=== PATIENT | male | born 1995 | race Caucasian/White ===

== ENCOUNTER 2017-01-13 18:22 | Outpatient (CLI) | payer SELFPAY | END 2017-01-13 18:23 | disposition critical access hospital (66) | LOC: EMS 18:22 | PROVIDERS: ATTEND Surgery | DX: S61.012A Laceration without foreign body of left thumb without damage to nail, initial encounter (principal); W31.2XXA Contact with powered woodworking and forming machines, initial encounter; Y92.009 Unspecified place in unspecified non-institutional (private) residence as the place of occurrence of the external cause | CPT/HCPCS: A0425; A0429 ==

== ENCOUNTER 2017-01-13 18:48 | Emergency (ER) | payer SELFPAY ==
[2017-01-13] MEDS ORDERED: CEPHALEXIN 250 MG Prepack 8 PO ONE ×2 (18:58→19:08)
[2017-01-13] MEDS ORDERED: TETANUS/DIPHTHERIA/PERTUSSIS 0.5 ML SYRINGE IM ONE ×2 (18:58→19:08)
[2017-01-13] MEDS ORDERED: CEPHALEXIN 250 MG CAPSULE PO STA (18:58)
[2017-01-13] MEDS ORDERED: BUFFERED LIDOCAINE 10 ML SYRINGE ONE (19:02)
--- NOTE | 2017-01-13 19:02 | ED Physician Documentation ---
PD HPI UPPER EXT INJURY - Stated complaint Stated Complaint: LAC TO FINGER - History obtained from History obtained from: Patient - History of Present Illness Location: Other (Right-handed gentleman with unknown tetanus status was working at home with a table saw on the wood kicked back and impacted his left thumb and he has a left thumb tip degloving injury.) Review of Systems Constitutional: reports: Reviewed and negative Throat: reports: Reviewed and negative Cardiac: reports: Reviewed and negative Respiratory: reports: Reviewed and negative PD PAST MEDICAL HISTORY - Present Medications Home Medications: Ambulatory Orders Medication Instructions Recorded Confirmed Cephalexin [Keflex] 500 mg PO QID #30 capsule 01/13/17 HYDROcod/ACETAM 5/325 [Parks 5/325] 1 - 2 ea PO Q6H PRN #15 tablet 01/13/17 - Allergies Allergies/Adverse Reactions: Allergies Allergy/AdvReac Type Severity Reaction Status Date / Time No Known Drug Allergies Allergy Verified 01/13/17 19:01 PD ED PE NORMAL - Vitals Vital signs reviewed: Yes - General General: Alert and oriented X 3, No acute distress - Extremities Extremities: Other (The tip of the left thumb, especially on the dorsal side is degloved and partially in place though on the ulnar side of the digit. The nail is included in the degloved portion and I do not see any visible bone.) - Neuro Neuro: Alert and oriented X 3, Normal speech - Psych Psych: Normal mood, Normal affect Results - Vitals Vitals: Vital Signs - 24 hr 01/13/17 18:51 Temperature 36.3 C L Heart Rate 68 Respiratory 16 Rate Blood Pressure 146/65 H O2 Saturation 100 Oxygen O2 Source Room air - Rads (name of study) L thumb Radiology: EMP read contemporaneously (open fracture of distal phalanx) Procedures - Laceration (location) L thumb tip Length in cm: 3 Wound type: Other (He has circumferential degloving injury of the tip of the left thumb including the nailbed. It was debrided and the bony bits in the distal flap were removed and the nail was removed using blunt dissection, and then the entirety of the tip was sutured back on a circumferential fashion using 5-0 nylon interrupted sutures. This was after a digital block with a mixture of buffered lidocaine and 0.5% Marcaine with excellent anesthesia. The patient tolerated this very well.) Departure - Departure Disposition: 01 Home, Self Care Clinical Impression: Open fracture of left thumb Qualifiers: Encounter type: initial encounter Phalanx: distal Fracture alignment: displaced Qualified Code(s): S62.522B - Displaced fracture of distal phalanx of left thumb, initial encounter for open fracture Degloving injury of left hand Qualifiers: Encounter type: initial encounter Qualified Code(s): S61.402A - Unspecified open wound of left hand, initial encounter Condition: Good Record reviewed to determine appropriate education?: Yes Instructions: ED Fx Finger Open, ED Laceration Hand Follow-Up: [facility] [Provider Group] Prescriptions: Cephalexin [Keflex] 500 mg PO QID #30 capsule HYDROcod/ACETAM 5/325 [Parks 5/325] 1 - 2 ea PO Q6H PRN #15 tablet PRN Reason: Pain Comments: Call the orthopedics clinic tomorrow, I recommend 3 days for wound check in 2 weeks for suture removal. Keep the current dressing on and dry until then. Your blood pressure was elevated today on check into the emergency department. This does not mean that you have hypertension, it is a common phenomenon to come to the emergency department and have elevated blood pressure. I recommend that she see your primary care physician within the week to have it rechecked when you are feeling better. Do not drink or drive while taking narcotic pain medication. Note that many narcotic pain relievers also contain Tylenol/acetaminophen. Please ensure that your total dose of acetaminophen from all sources does not exceed 3 g (3000 mg) per day. You may get constipated while on this medication. Take a stool softener such as Colace twice a day while you are on it. Also add an vudp-avb-jrnlbob laxative such as senna or MiraLAX on any day that you do not have a bowel movement. If you received a narcotic pain medication or sedative while in the emergency department, do not drive for the next 24 hours. Forms: Activity restrictions
[2017-01-13] MEDS ORDERED: CEPHALEXIN 250 MG CAPSULE PO ONE (19:08)
[2017-01-13] MEDS ORDERED: BUPIVACAINE 0.5% PF 30 ML VIAL ONE (19:26)
[2017-01-13] MEDS ORDERED: HYDROcod/ACET 5/325 Prepack 6 PO STA (19:59)
[2017-01-13] MEDS ORDERED: HYDROcod/ACET 5/325 Prepack 6 PO ONE (20:04)
--- NOTE | 2017-01-13 20:06 | XRAY Preliminary Report ---
Exam: XR Finger(s) LT IMPRESSION: 1. Patient status post comminuted fracture and traumatic amputation of the thumb distal phalanx tuft. There is an associated obliquely oriented fracture on the ulnar side of the first distal phalanx bas e. 2. No dislocation. 3. Diffuse thumb swelling with distal thumb soft tissue defect with multiple bony fragments in the de fect. [facility] SITE ID: [id number]
[2017-01-13 20:08] VITALS: BP 131/91
--- NOTE | 2017-01-13 20:46 | XRAY Report ---
EXAM: LEFT FIRST DIGIT RADIOGRAPHY EXAM DATE: 01/13/2017 07:26 PM. CLINICAL HISTORY: Thumb injury. COMPARISON: None. TECHNIQUE: 3 views. FINDINGS: Bones: Comminuted fracture of the first distal phalanx tuft with traumatic amputation. The tip of the first distal phalanx tuft is displaced 7 mm from the thumb on the lateral view. Acute obliquely orie nted intra-articular fracture at the base of the first distal phalanx. Joints: Normal. No subluxations. Soft Tissues: Large soft tissue defect in the distal first thumb. Bone fragments are present in the s oft tissue laceration. Diffuse thumb swelling noted. IMPRESSION: 1. Patient status post comminuted fracture and traumatic amputation of the thumb distal phalanx tuft. There is an associated obliquely oriented fracture on the ulnar side of the first distal phalanx bas e. 2. No dislocation. 3. Diffuse thumb swelling with distal thumb soft tissue defect with multiple bony fragments in the de fect. [facility] Referring Provider Line: [phone] SITE ID: [id number]
== END 2017-01-13 20:10 | disposition home or self-care (01) ==
LOC: ED 18:48
DX: S62.522B Displaced fracture of distal phalanx of left thumb, initial encounter for open fracture (principal); W31.2XXA Contact with powered woodworking and forming machines, initial encounter; Y92.019 Unspecified place in single-family (private) house as the place of occurrence of the external cause; I10 Essential (primary) hypertension; E78.00 Pure hypercholesterolemia, unspecified; I25.10 Atherosclerotic heart disease of native coronary artery without angina pectoris
CPT/HCPCS: 13132; 73140; 90471; 90715; 99283; A9270

== ENCOUNTER 2017-02-08 23:28 | Emergency (ER) | payer MEDICAID ==
[2017-02-08 23:33] VITALS: BP 118/71
[2017-02-08] MEDS ORDERED: LIDOCAINE 2% 10 ML MDV ONE (23:50)
--- NOTE | 2017-02-09 00:07 | ED Physician Documentation ---
PD HPI WOUND RECHECK - Stated complaint Stated Complaint: SUTURE REMOVAL - Chief complaint Chief Complaint: Laceration - Histroy obtained from History obtained from: Patient, Family - History of Present Illness Location: Left Hand Timing - onset: How many weeks ago (3) Associated symptoms: Pain. No: Fever, Redness Similar symptoms before: Work up / diagnostics, Treatment Recently seen: Emergency Dept - Additional information Additional information: Patient is a 21 year old male with no significant past medical history who is presenting to the emergency department for wound check and suture removal. Patient had a de-gloving injury about 3 weeks prior. Patient has not been able to follow up since then since he does not have insurance. Patient states that he was finally brought in tonight by a friend to get it taken care of. Patient denies nausea, vomiting fever or chills. Review of Systems Constitutional: denies: Fever, Chills Eyes: reports: Reviewed and negative Ears: reports: Reviewed and negative Nose: reports: Reviewed and negative Throat: reports: Reviewed and negative GI: denies: Nausea, Vomiting : reports: Reviewed and negative Skin: reports: Lesions, Laceration (s) Musculoskeletal: reports: Extremity pain Neurologic: denies: Generalized weakness, Focal weakness, Numbness Immunocompromised: denies: Immunocompromised PD PAST MEDICAL HISTORY - Past Medical History Past Medical History: No - Past Surgical History Past Surgical History: No - Present Medications Home Medications: Ambulatory Orders Medication Instructions Recorded Confirmed Cephalexin [Keflex] 500 mg PO QID #30 capsule 01/13/17 HYDROcod/ACETAM 5/325 [[place]rockett 5/325] 1 - 2 ea PO Q6H PRN #15 tablet 01/13/17 - Allergies Allergies/Adverse Reactions: Allergies Allergy/AdvReac Type Severity Reaction Status Date / Time No Known Drug Allergies Allergy Verified 02/08/17 23:31 - Social History Does the pt smoke?: No Smoking Status: Never smoker Does the pt drink ETOH?: No Does the pt have substance abuse?: No - Immunizations Immunizations are current?: Yes Immunizations: TDAP >10years/unknown PD ED PE NORMAL - Vitals Vital signs reviewed: Yes - General General: Alert and oriented X 3, No acute distress - HEENT HEENT: Atraumatic, PERRL - Neck Neck: Supple, no meningeal sign - Cardiac Cardiac: RRR, No murmur - Respiratory Respiratory: No respiratory distress, Clear bilaterally - Abdomen Abdomen: Soft, Non tender, Non distended - Derm Derm: Normal color, Warm and dry, No rash - Neuro Neuro: Alert and oriented X 3, No motor deficit, No sensory deficit, Normal speech - Psych Psych: Normal mood PD ED PE EXPANDED - Extremities Extremities: Left finger(s) (1st digit. Flap of what appears to be scabbed, skin. no erythem, no discharge with approximately [address] ) Results - Vitals Vitals: Vital Signs - 24 hr 02/08/17 23:31 Temperature 35.9 C L Heart Rate 80 Respiratory 16 Rate Blood Pressure 118/71 O2 Saturation 98 Oxygen O2 Source Room air Procedures - Suture/staple Removal (location) left thumb Suture/staple removal: # sutures (15), No complications. No: Infected, Dehiscence PD MEDICAL DECISION MAKING - ED course Complexity details: reviewed old records, re-evaluated patient, d/w patient, d/ w family ED course: Patient was seen and examined at bedside. sutures were removed, but it had been so long, a few remnants where buried in granulation tissue. Patient had no signs of infection. Patient's wound was cleaned and dressed and was stable for discharge with outpatient follow up. Departure - Departure Disposition: 01 Home, Self Care Clinical Impression: Degloving injury of left hand Condition: Good Instructions: Wound Care Follow-Up: Jeffery Mcdowell MD [Provider Admit Priv/Credential] - Within 3 Days Comments: Please keep, your wound clean and dry. you should clean it with regular soap and water. You should follow up with Dr. Mcdowell, orthopedics for further evaluation. You can take motrin or tylenol as needed for pain. You should return for fevers, vomiting, new worsening or uncontrollable symptoms.
== END 2017-02-09 00:20 | disposition home or self-care (01) ==
LOC: ED 23:28
DX: S61.012D Laceration without foreign body of left thumb without damage to nail, subsequent encounter (principal); X58.XXXD Exposure to other specified factors, subsequent encounter
CPT/HCPCS: 99281; 99283

== ENCOUNTER 2022-10-11 14:51 | Emergency (ER) | payer MEDICAID ==
[2022-10-11 14:58] VITALS: BP 159/90
[2022-10-11 15:12] LABS: BASOPHILS % (AUTO) 0.5 %; EOSINOPHILS # (AUTO) 0.3 10^3/uL (0.0-0.7); EOSINOPHILS % (AUTO) 3.4 %; HCT - HEMATOCRIT 43.6 % (42.0-52.0); HGB - HEMOGLOBIN 14.6 g/dL (14.0-18.0); LYMPHOCYTES # (AUTO) 2.8 10^3/uL (1.5-3.5); MEAN CORPUSCULAR HEMOGLOBIN 28.8 pg (27.0-31.0); MEAN CORPUSCULAR HGB CONC 33.5 g/dL (32.0-36.0); MEAN PLATELET VOLUME 9.5 fL (7.4-11.4); MONOCYTES # (AUTO) 0.5 10^3/uL (0.0-1.0); MONOCYTES % (AUTO) 6.4 %; NEUTROPHILS # (AUTO) 4.5 10^3/uL (1.5-6.6); NEUTROPHILS % (AUTO) 55.5 %; PLT - PLATELET COUNT 283 10^3/uL (130-450); RED BLOOD COUNT 5.07 10^6/uL (4.70-6.10); RED CELL DISTRIBUTION WIDTH 13.3 % (12.0-15.0); WHITE BLOOD COUNT 8.1 x10^3/uL (4.8-10.8)
[2022-10-11 15:21] LABS: INR 1.1 (0.8-1.2); PT - PROTHROMBIN TIME 11.5 secs (9.9-12.6)
[2022-10-11 15:28] LABS: ALBUMIN/GLOBULIN RATIO 1.1 (1.0-2.2); BILIRUBIN,TOTAL 0.6 mg/dL (0.2-1.0); CALCIUM 9.2 mg/dL (8.5-10.3); CREATININE 0.7 mg/dL (0.6-1.2); POTASSIUM 3.9 mmol/L (3.5-5.0); TOTAL PROTEIN 7.8 g/dL (6.7-8.2)
[2022-10-11 15:38] LABS: BILIRUBIN,URINE NEGATIVE (NEGATIVE); GLUCOSE, URINE (UA) NEGATIVE (NEGATIVE); KETONES,URINE (UA) NEGATIVE (NEGATIVE); LEUKOCYTE ESTERASE, URINE NEGATIVE (NEGATIVE); NITRITE,URINE NEGATIVE (NEGATIVE); OCCULT BLOOD,URINE NEGATIVE (NEGATIVE); PH,URINE 6.5 PH (5.0-7.5); PROTEIN,URINE NEGATIVE (NEGATIVE); UROBILINOGEN,URINE 0.2 (NORMAL) E.U./dL (NORMAL)
[2022-10-11 15:40] LABS: CLARITY,URINE CLEAR (CLEAR)
--- NOTE | 2022-10-11 15:51 | ED Physician Documentation ---
History of Present Illness - Stated complaint Stated Complaint: BLOODY STOOL,ABD PX, VOMIT - Chief complaint Chief Complaint: Abd Pain - Additonal information Additional information: 27-year-old male presents emergency department for evaluation of generalized abdominal pain that has now focused in the right lower quadrant of the abdomen as well as rectal bleeding. He reports that he woke up this a.m. and had the urge to defecate. When he did there was a lot of bright red blood on his stool. It was painful to defecate. He has continued to have the urge to have bowel movements through the day and with each bowel movement there is less and less of blood but now he has pain in the right lower quadrant of his abdomen. He does have a history of hemorrhoids but they have never been painful. He also has a history of receptive rectal intercourse though none for at least 3 weeks. He denies any urinary symptoms urgency frequency or difficulty initiating urine stream. No pertinent past surgical history. Review of Systems Constitutional: denies: Fever Nose: reports: Reviewed and negative Throat: reports: Reviewed and negative GI: reports: Abdominal Pain, Nausea, Bloody / black stool : reports: Reviewed and negative Skin: reports: Reviewed and negative Musculoskeletal: reports: Reviewed and negative PD PAST MEDICAL HISTORY - Past Surgical History Past Surgical History: No - Present Medications Home Medications: Ambulatory Orders Medication Instructions Recorded Confirmed HYDROcod/ACETAM 5/325 [Sabina 5/325] 1 - 2 ea PO Q6H PRN #15 tablet 01/13/17 cephALEXin [Keflex] 500 mg PO QID #30 capsule 01/13/17 - Allergies Allergies/Adverse Reactions: Allergies Allergy/AdvReac Type Severity Reaction Status Date / Time No Known Drug Allergies Allergy Verified 10/11/22 14:54 - Social History Does the pt smoke?: No Smoking Status: Never smoker Does the pt drink ETOH?: No Does the pt have substance abuse?: No - Immunizations Immunizations are current?: Yes Immunizations: TDAP >10years/unknown PD ED PE NORMAL - General General: Alert and oriented X 3, No acute distress - HEENT HEENT: PERRL - Neck Neck: Supple, no meningeal sign, No adenopathy - Cardiac Cardiac: RRR, No murmur - Respiratory Respiratory: No respiratory distress, Clear bilaterally - Abdomen Abdomen: Normal bowel sounds, Soft, Non distended. No: Non tender (Focal tenderness right lower quadrant of the abdomen without guarding or rebound.) - Rectal Rectal: Other (Chaperoned rectal exam with Alex al RN revealed a superficial anal fissure at about 4:00. Mild rectal tenderness. No prostate tenderness was evoked and did not feel enlarged.) - Back Back: No CVA TTP, No spinal TTP - Derm Derm: Normal color, Warm and dry, No rash - Neuro Neuro: Alert and oriented X 3 Eye Opening: Spontaneous Motor: Obeys Commands Verbal: Oriented GCS Score: 15 Results - Vitals Vitals: Vital Signs - 24 hr 10/11/22 14:54 Temperature 36.5 C Heart Rate 70 Respiratory 16 Rate Blood Pressure 159/90 H O2 Saturation 99 Oxygen O2 Source Room air - Labs Labs: Laboratory Tests 10/11/22 10/11/22 10/11/22 15:06 15:06 15:06 WBC 8.1 RBC 5.07 Hgb 14.6 Hct 43.6 MCV 86.0 MCH 28.8 MCHC 33.5 RDW 13.3 Plt Count 283 MPV 9.5 Neut # (Auto) 4.5 Lymph # (Auto) 2.8 [place] # (Auto) 0.5 Eos # (Auto) 0.3 Baso # (Auto) 0.0 Absolute Nucleated RBC 0.00 Nucleated RBC % 0.0 PT 11.5 INR 1.1 Sodium 137 Potassium 3.9 Chloride 106 Carbon Dioxide 26 Anion Gap 5.0 L BUN 11 Creatinine 0.7 Estimated GFR (MDRD) 137 Glucose 100 Calcium 9.2 Total Bilirubin 0.6 AST 18 ALT 27 Alkaline Phosphatase 69 Total Protein 7.8 Albumin 4.0 Globulin 3.8 Albumin/Globulin Ratio 1.1 Lipase 29 Urine Color Urine Clarity Urine pH Ur Specific [place] Urine Protein Urine Glucose (UA) Urine Ketones Urine Occult Blood Urine Nitrite Urine Bilirubin Urine Urobilinogen Ur Leukocyte Esterase Ur Microscopic Review Urine Culture Comments 10/11/22 15:30 WBC RBC Hgb Hct MCV MCH MCHC RDW Plt Count MPV Neut # (Auto) Lymph # (Auto) [place] # (Auto) Eos # (Auto) Baso # (Auto) Absolute Nucleated RBC Nucleated RBC % PT INR Sodium Potassium Chloride Carbon Dioxide Anion Gap BUN Creatinine Estimated GFR (MDRD) Glucose Calcium Total Bilirubin AST ALT Alkaline Phosphatase Total Protein Albumin Globulin Albumin/Globulin Ratio Lipase Urine Color YELLOW Urine Clarity CLEAR Urine pH 6.5 Ur Specific [place] 1.010 Urine Protein NEGATIVE Urine Glucose (UA) NEGATIVE Urine Ketones NEGATIVE Urine Occult Blood NEGATIVE Urine Nitrite NEGATIVE Urine Bilirubin NEGATIVE Urine Urobilinogen 0.2 (NORMAL) Ur Leukocyte Esterase NEGATIVE Ur Microscopic Review NOT INDICATED Urine Culture Comments NOT INDICATED - Rads (name of study) CT abd Relevant Findings:: Final report received (No findings to explain the right lower quadrant pain or rectal bleeding. No evidence of colitis, diverticular disease or appendicitis.) PD Medical Decision Making - ED course Complexity details: reviewed results, considered differential, d/w patient ED course: 27-year-old male presents emergency department for evaluation of rectal bleeding with defecation that began this morning. He reports that the days gone on the rectal bleeding has decreased. He does have a history of receptive rectal intercourse. On exam his rectal exam does show a superficial anal fissure at about 4:00. There was no prostate tenderness Evoque. I suspect the anal fissure is the cause of the rectal bleeding. However he also reported abdominal pain that had localized to the right lower quadrant. CBC and electrolytes were obtained and per my interpretation no acute worrisome findings were seen. Subs equently a CT of the abdomen was completed to rule out worrisome findings such as acute cholecystitis, appendicitis, nephro lithiasis, ureterolithiasis, proctitis and colitis. The CT was essentially negative. I discussed the findings with the patient. I making the recommendation to avoid receptive rectal sex for several weeks as well as to start taking Metamucil to soften bowel movements and prevent straining. He may also benefit from sitz bath's and Preparation H creams. He will follow closely with his PCP. The usual emergent return precautions were discussed for worsening symptoms Departure - Departure Disposition: 01 Home, Self Care Clinical Impression: Rectal fissure, Rectal bleeding Abdominal pain Qualifiers: Abdominal location: generalized Qualified Code(s): R10.84 - Generalized abdominal pain Condition: Stable Record reviewed to determine appropriate education?: Yes Comments: Du you are seen today because you had some rectal bleeding this morning. As discussed at the bedside you do have a superficial rectal fissure at about 4:00. Often these will resolve spontaneously. I recommend you do a warm sitz bath once or twice a day. Applying a Preparation H cream can also be helpful. But I want to prevent you from having any straining with bowel movement so I recommend that you begin taking Metamucil each day as well as increasing your water intake. Your labs today were otherwise normal and the CT of the abdomen was also normal without findings to suggest kidney stones, gallbladder disease, appendicitis, proctitis or colitis. Please discuss this ED visit with your primary care doctor. Return to the ER for any new or worsening symptoms
[2022-10-11] MEDS ORDERED: iohexoL-300 100 ML VIAL ONE (15:58)
--- NOTE | 2022-10-11 16:41 | CT Report ---
PROCEDURE: ABDOMEN/PELVIS W INDICATIONS: RLQ pain; rectal bleeding CONTRAST: 100mL Omni 300 TECHNIQUE: After the administration of intravenous contrast, 5 mm thick sections acquired from the diaphragms to the symphysis. 5 mm thick coronal and sagittal reformats were acquired. For radiation dose reducti on, the following was used: automated exposure control, adjustment of mA and/or kV according to ashvin ent size. COMPARISON: None FINDINGS: Image quality: Excellent. Lung bases and heart: Unremarkable. Liver: No solid mass. Gallbladder and biliary tree: No radiopaque stones or wall thickening. No biliary dilation. Spleen: No splenomegaly. Pancreas: No pancreatic ductal dilation. Adrenals: No adrenal nodule. Kidneys and ureters: No hydronephrosis. No renal cystic lesion which requires follow up. No solid mas s. Bowel and peritoneum: No bowel distension. No pathologic free fluid. Normal appendix. No diverticular disease. Lymph nodes: No central or retroperitoneal adenopathy. Vessels: No infrarenal aortic aneurysm. PELVIS Reproductive organs: Unremarkable. Bladder: No abnormal wall thickening, accounting for underdistension. Pelvic lymph nodes: No pelvic adenopathy by size criteria. Bones: No aggressive osseous abnormality. Other: No significant ventral or inguinal hernia. IMPRESSION: No findings to explain the right lower quadrant pain or rectal bleeding. No evidence of colitis, dive rticular disease or appendicitis. Reviewed by: Joseph Block on 10/11/2022 4:40 PM PDT Approved by: Joseph Block on 10/11/2022 4:40 PM PDT Station ID: [id number]
[2022-10-11] MEDS ORDERED: iohexoL-300 100 ML VIAL IVP ONE (16:50)
== END 2022-10-11 17:02 | disposition home or self-care (01) ==
LOC: ED 14:51
DX: K60.2 Anal fissure, unspecified (principal); K62.5 Hemorrhage of anus and rectum; R10.31 Right lower quadrant pain
CPT/HCPCS: 36415; 74177; 80053; 81003; 83690; 85025; 85610; 99283; 99284; Q9967; 81001; 87086

== ENCOUNTER 2022-11-14 14:01 | Emergency (ER) | payer MEDICAID ==
[2022-11-14 14:16] VITALS: BP 131/74
--- NOTE | 2022-11-14 14:21 | ED Physician Documentation ---
PD HPI LOWER EXT INJURY - Stated complaint Stated Complaint: RT FOOT PX - Chief complaint Chief Complaint: Ext Problem - History obtained from History obtained from: Patient - Additional information Additional information: In 2019 he injured the right foot and ankle. He wonders if the current issue might be related to that. No recent injury but for the last 3 weeks has had pain of the Achilles tendon especially when he walks. It is mild to nonexistent at rest. There was no recent injury. PD PAST MEDICAL HISTORY - Past Surgical History Past Surgical History: No - Present Medications Home Medications: Ambulatory Orders Medication Instructions Recorded Confirmed Ibuprofen [Motrin] 800 mg PO Q8H PRN #30 tablet 11/14/22 - Allergies Allergies/Adverse Reactions: Allergies Allergy/AdvReac Type Severity Reaction Status Date / Time No Known Drug Allergies Allergy Verified 11/14/22 14:11 - Social History Does the pt smoke?: No Smoking Status: Never smoker Does the pt drink ETOH?: No Does the pt have substance abuse?: No - Immunizations Immunizations are current?: Yes Immunizations: TDAP >10years/unknown PD ED PE NORMAL - Vitals Vital signs reviewed: Yes - General General: Alert and oriented X 3, No acute distress - Extremities Extremities: Other (The Achilles tendon is tender, but function is intact. He is less tender over the plantar fascia but he is tender there as well and he is painful with forced dorsiflexion of the right foot. No bony tenderness of the ankle, calcaneus, knee. No warmth or redness.) - Neuro Neuro: Alert and oriented X 3, Normal speech - Psych Psych: Normal mood, Normal affect Results - Vitals Vitals: Vital Signs - 24 hr 11/14/22 14:03 Temperature 36.9 C Heart Rate 68 Respiratory 18 Rate Blood Pressure 131/74 H O2 Saturation 97 Oxygen O2 Source Room air PD Medical Decision Making - ED course ED course: This seems like a combination of Achilles tendinitis with a lesser case of planter fasciitis. He was counseled on stretches, podiatry follow-up, anti- inflammatories, and he needs a work note. Departure - Departure Disposition: 01 Home, Self Care Clinical Impression: Plantar fasciitis of right foot, Achilles tendinitis, right leg Condition: Good Record reviewed to determine appropriate education?: Yes Instructions: Achilles Tendonitis, ED Plantar Fasciitis Follow-Up: Herrera Skelton, DPM [Physician No Access] - Prescriptions: Ibuprofen [Motrin] 800 mg PO Q8H PRN #30 tablet PRN Reason: PAIN &/OR FEVER Comments: It seems that you have a combination of Achilles tendinitis and plantar fasciitis. You should follow-up with the manager wireless, call this number on the paper for an appointment in [place]. In the meantime you should do some stretching exercises, the easiest one to do is to take a rolled up towel and pull back the ball of the foot to stretch the Achilles and plantar fascia gently. Return for new or worsening symptoms. Forms: PCP List, Activity restrictions
== END 2022-11-14 14:47 | disposition home or self-care (01) ==
LOC: ED 14:01
DX: M72.2 Plantar fascial fibromatosis (principal); M76.61 Achilles tendinitis, right leg
CPT/HCPCS: 99281; 99283